=== PATIENT | female | born 1955 | race Caucasian/White ===

== ENCOUNTER 2021-10-26 17:49 | Inpatient (IN) ==
[2021-10-26] MEDS ORDERED: *HR* Etomidate 20 MG/10 ML AMPUL IVP ONE ×2 (18:30→18:42)
[2021-10-26] MEDS ORDERED: Naloxone 0.4 MG/ML INJ IVP PRN (20:00)
[2021-10-26] MEDS ORDERED: Melatonin 3 MG TABLET PO PRN (20:00)
[2021-10-26] MEDS ORDERED: *HR* Heparin 5,000 UNIT/ML VIAL IVP PRN ×2 (20:02)
[2021-10-26] MEDS ORDERED: Perflutren Lipid Microsphere 1.3 ML in 0.9 % Sodium Chloride 8.7 ML IVP PRN (20:04)
[2021-10-26] MEDS ORDERED: *HR* Metoprolol 5 MG/5 ML VIAL IVP PRN (20:05)
[2021-10-26] MEDS: Heparin 25,000UNIT/250ML 1/2NS 25,000 UNIT/250 ML IV.SOLN IVC SCH (20:52)
[2021-10-27 03:13] LABS: Hematocrit 43.1 % (35.3-44.9); Hemoglobin 14.3 g/dL (11.5-15.4); Mean Corpuscular HGB Conc 33.2 g/dL (31.6-35.5); Mean Corpuscular Hemoglobin 30.2 pg (28.0-33.3); Mean Corpuscular Volume 90.9 fL (83.0-100.0); Mean Platelet Volume 9.9 fL (9.4-12.4); Platelet Count 167 K/mcL (140-400); Red Blood Count 4.74 M/mcL (3.82-4.97); Red Cell Distribution Width 13.9 % (11.5-14.5)
[2021-10-27 03:22] LABS: INR 1.2; Prothrombin Time 13.1 Seconds (9.4-12.1)
[2021-10-27 03:27] LABS: Heparin anti-factor XA UFH 1.28 IU/mL (0.30-0.70)
[2021-10-27 03:36] LABS: Alanine Aminotransferase 16 Units/L (7-52); Albumin 3.6 g/dL (3.5-5.7); Albumin/Globulin Ratio 1.5 (1.1-2.2); Alkaline Phosphatase 45 Units/L (34-104); Aspartate Amino Transferase 16 Units/L (13-39); BUN/Creatinine Ratio 18 (6-26); Blood Urea Nitrogen 14 mg/dL (8-23); Calcium 8.4 mg/dL (8.6-10.3); Carbon Dioxide 25 mEq/L (23-29); Chloride 107 mEq/L (98-107); Globulin 2.4 g/dL (2.4-3.5); Glucose 101 mg/dL (70-105); Magnesium 1.8 mg/dL (1.6-2.6); Osmolality,Calculated 287 (280-300); Sodium 138 mEq/L (136-145); eGFR For African Americans > 60 (> 60); eGFR For Non-African Americans > 60 (> 60)
[2021-10-27] MEDS ORDERED: NON-FORMULARY MEDICATION 1 EACH EACH (Omega-3/Dha/Epa/Fish Oil [Fish Oil 1,000 Mg Softgel] PO SCH (09:00)
[2021-10-27] MEDS: Ascorbic Acid 500 MG TABLET PO SCH (09:13)
[2021-10-27] MEDS: Multivit/Ca/Min/Fe/FA 1 TAB TABLET PO SCH (09:13)
[2021-10-27] MEDS: Gabapentin 300 MG CAPSULE PO SCH ×2 (09:13→21:45)
[2021-10-27] MEDS: Loratadine 10 MG TABLET PO SCH (09:13)
[2021-10-27] MEDS: Heparin 25,000UNIT/250ML 1/2NS 25,000 UNIT/250 ML IV.SOLN IVC SCH (11:54)
[2021-10-27] MEDS ORDERED: Nicotine 14 MG PATCH.TD24 TD SCH (12:15)
[2021-10-27 20:11] VITALS: O2SAT 97
[2021-10-28] MEDS ORDERED: Regadenoson 0.4 MG/5 ML SYRINGE IVP ONE (06:22)
[2021-10-28] MEDS: Multivit/Ca/Min/Fe/FA 1 TAB TABLET PO SCH (09:27)
[2021-10-28] MEDS: Ascorbic Acid 500 MG TABLET PO SCH (09:27)
[2021-10-28] MEDS: Gabapentin 300 MG CAPSULE PO SCH (09:27)
[2021-10-28] MEDS: Loratadine 10 MG TABLET PO SCH (09:27)
[2021-10-28] MEDS: Heparin 25,000UNIT/250ML 1/2NS 25,000 UNIT/250 ML IV.SOLN IVC SCH (10:28)
[2021-10-28 11:11] VITALS: BP 159/83; PULSE 78; TEMP 97.7
[2021-10-28] MEDS ORDERED: Apixaban 5 MG TABLET PO SCH (11:45)
== END 2021-10-28 16:20 | disposition home or self-care (01) | DRG 201 ==
LOC: EMEROOARM 17:49 → 2NENU 17:49 → SUATTDRO 20:00 → 2NENU 20:30
PROVIDERS: ADMIT Internal Medicine; ATTEND Pharmacist

== ENCOUNTER 2021-11-25 10:20 | Observation (INO) ==
[2021-11-25] MEDS: *HR* Metoprolol 5 MG/5 ML VIAL IVP PRN ×3 (10:44→11:20)
[2021-11-25 10:49] LABS: Basophils % 0.3 %; Eosinophils # 0.1 K/mcL (0.0-0.6); Hematocrit 48.9 % (35.3-44.9); Hemoglobin 16.9 g/dL (11.5-15.4); Immature Granulocytes % 0.2 % (0-4); Lymphocytes # 1.7 K/mcL (0.6-4.6); Lymphocytes % 28.3 %; Mean Corpuscular HGB Conc 34.6 g/dL (31.6-35.5); Mean Corpuscular Hemoglobin 30.7 pg (28.0-33.3); Mean Corpuscular Volume 88.7 fL (83.0-100.0); Mean Platelet Volume 10.2 fL (9.4-12.4); Monocytes # 0.6 K/mcL (0.0-1.3); Monocytes % 9.1 %; Neutrophils # 3.7 K/mcL (1.6-8.9); Platelet Count 176 K/mcL (140-400); Red Blood Count 5.51 M/mcL (3.82-4.97); Red Cell Distribution Width 13.3 % (11.5-14.5); Segmented Neutrophils % 60.1 %; White Blood Count 6.2 K/mcL (4.3-11.1)
[2021-11-25 10:57] LABS: INR 1.3
[2021-11-25 11:00] LABS: Activated Partial Thrombo Time 37.3 Seconds (26.0-36.0)
[2021-11-25 11:11] LABS: Alanine Aminotransferase 15 Units/L (7-52); Albumin 4.4 g/dL (3.5-5.7); Albumin/Globulin Ratio 1.5 (1.1-2.2); Alkaline Phosphatase 61 Units/L (34-104); Aspartate Amino Transferase 16 Units/L (13-39); BUN/Creatinine Ratio 13 (6-26); Bilirubin,Total 1.6 mg/dL (0.3-1.0); Blood Urea Nitrogen 11 mg/dL (8-23); Calcium 9.5 mg/dL (8.6-10.3); Carbon Dioxide 29 mEq/L (23-29); Chloride 103 mEq/L (98-107); Globulin 2.9 g/dL (2.4-3.5); Glucose 99 mg/dL (70-105); Magnesium 2.1 mg/dL (1.6-2.6); Osmolality,Calculated 285 (280-300); Potassium 4.2 mEq/L (3.5-5.1); Sodium 138 mEq/L (136-145); Total Protein 7.3 g/dL (6.4-8.9); Troponin I < 0.03 ng/mL (< 0.04); eGFR For African Americans > 60 (> 60); eGFR For Non-African Americans > 60 (> 60)
[2021-11-25 11:24] LABS: Thyroid Stimulating Hormone 1.555 mcIU/mL (0.340-5.600)
[2021-11-25] MEDS ORDERED: Isovue-370 500 ML BOTTLE IVP ONE (12:22)
[2021-11-25] MEDS: DilTIAZem 50 MG in 0.9 % Sodium Chloride 40 ML IVC SCH ×2 (12:56→16:27)
[2021-11-25] MEDS ORDERED: Naloxone 0.4 MG/ML INJ IVP PRN ×2 (14:39)
[2021-11-25] MEDS ORDERED: Ondansetron ODT 4 MG TAB.RAPDIS SL PRN (14:39)
[2021-11-25] MEDS ORDERED: *HR* HYDROcodone/Acet 5/325 mg TABLET PO PRN (14:39)
[2021-11-25] MEDS ORDERED: Acetaminophen 325 MG TABLET PO PRN (14:39)
[2021-11-25] MEDS ORDERED: *HR* Digoxin 0.5 MG/2 ML AMPUL IVP ONE (15:46)
[2021-11-25] MEDS: Apixaban 5 MG TABLET PO SCH (20:32)
[2021-11-26 04:59] LABS: Basophils % 0.3 %; Eosinophils # 0.2 K/mcL (0.0-0.6); Eosinophils % 2.5 %; Hematocrit 44.6 % (35.3-44.9); Immature Granulocytes % 0.2 % (0-4); Lymphocytes # 1.7 K/mcL (0.6-4.6); Lymphocytes % 28.3 %; Mean Corpuscular HGB Conc 33.4 g/dL (31.6-35.5); Mean Corpuscular Hemoglobin 30.2 pg (28.0-33.3); Mean Corpuscular Volume 90.5 fL (83.0-100.0); Mean Platelet Volume 10.5 fL (9.4-12.4); Monocytes # 0.5 K/mcL (0.0-1.3); Monocytes % 8.2 %; Neutrophils # 3.7 K/mcL (1.6-8.9); Platelet Count 169 K/mcL (140-400); Red Blood Count 4.93 M/mcL (3.82-4.97); Red Cell Distribution Width 13.6 % (11.5-14.5); Segmented Neutrophils % 60.5 %; White Blood Count 6.1 K/mcL (4.3-11.1)
[2021-11-26 05:09] LABS: Hemoglobin 14.9 g/dL (11.5-15.4)
[2021-11-26 05:17] LABS: Magnesium 2.1 mg/dL (1.6-2.6); Phosphorous 4.3 mg/dL (2.7-4.5)
[2021-11-26 05:18] LABS: Alanine Aminotransferase 12 Units/L (7-52); Albumin 3.8 g/dL (3.5-5.7); Albumin/Globulin Ratio 1.6 (1.1-2.2); Alkaline Phosphatase 47 Units/L (34-104); Aspartate Amino Transferase 13 Units/L (13-39); BUN/Creatinine Ratio 14 (6-26); Blood Urea Nitrogen 12 mg/dL (8-23); Calcium 8.8 mg/dL (8.6-10.3); Carbon Dioxide 33 mEq/L (23-29); Chloride 105 mEq/L (98-107); Globulin 2.4 g/dL (2.4-3.5); Glucose 104 mg/dL (70-105); Osmolality,Calculated 292 (280-300); Potassium 3.8 mEq/L (3.5-5.1); Sodium 141 mEq/L (136-145); Total Protein 6.2 g/dL (6.4-8.9); eGFR For African Americans > 60 (> 60); eGFR For Non-African Americans > 60 (> 60)
[2021-11-26] MEDS: Apixaban 5 MG TABLET PO SCH (08:45)
[2021-11-26] MEDS ORDERED: Loratadine 10 MG TABLET PO SCH (09:00)
[2021-11-26] MEDS ORDERED: Ascorbic Acid 500 MG TABLET PO SCH (09:00)
[2021-11-26] MEDS ORDERED: Nicotine 21 MG PATCH.TD24 TD SCH (09:00)
[2021-11-26] MEDS ORDERED: Multivit/Ca/Min/Fe/FA 1 TAB TABLET PO SCH (09:00)
[2021-11-26] MEDS ORDERED: Gabapentin 300 MG CAPSULE PO SCH (09:00)
[2021-11-26] MEDS ORDERED: Fluticasone Propionate Nasal 50 MCG/SPRAY BOTTLE NS SCH (09:00)
[2021-11-26 10:35] VITALS: BP 127/75; PULSE 74; TEMP 97.5; O2SAT 90
[2021-11-26] MEDS ORDERED: DilTIAZem CD (24hr) 180 MG CAP.ER.24H PO SCH (11:30)
== END 2021-11-26 15:20 | disposition home or self-care (01) ==
LOC: EMEROOARM 10:20 → 3BNU 10:20
PROVIDERS: ADMIT Internal Medicine; ATTEND Internal Medicine

== ENCOUNTER 2022-02-16 16:34 | Observation (INO) ==
[2022-02-16 17:29] LABS: Basophils % 0.2 %; Eosinophils # 0.1 K/mcL (0.0-0.6); Eosinophils % 1.2 %; Hematocrit 45.4 % (35.3-44.9); Hemoglobin 15.2 g/dL (11.5-15.4); Immature Granulocytes % 0.2 % (0-4); Lymphocytes # 2.4 K/mcL (0.6-4.6); Lymphocytes % 27.8 %; Mean Corpuscular HGB Conc 33.5 g/dL (31.6-35.5); Mean Corpuscular Hemoglobin 30.6 pg (28.0-33.3); Mean Corpuscular Volume 91.3 fL (83.0-100.0); Mean Platelet Volume 10.7 fL (9.4-12.4); Monocytes # 0.7 K/mcL (0.0-1.3); Monocytes % 8.4 %; Neutrophils # 5.3 K/mcL (1.6-8.9); Platelet Count 227 K/mcL (140-400); Red Blood Count 4.97 M/mcL (3.82-4.97); Red Cell Distribution Width 14.2 % (11.5-14.5); Segmented Neutrophils % 62.2 %; White Blood Count 8.6 K/mcL (4.3-11.1)
[2022-02-16] MEDS ORDERED: DilTIAZem 50 MG/50 ML IV.SOLN IVC SCH (17:30)
[2022-02-16 17:38] LABS: INR 1.6; Prothrombin Time 18.1 Seconds (9.4-12.1)
[2022-02-16 17:40] LABS: Activated Partial Thrombo Time 37.5 Seconds (26.0-36.0)
[2022-02-16 17:44] LABS: BUN/Creatinine Ratio 17 (6-26); Blood Urea Nitrogen 17 mg/dL (8-23); Calcium 9.1 mg/dL (8.6-10.3); Carbon Dioxide 28 mEq/L (23-29); Chloride 101 mEq/L (98-107); Glucose 92 mg/dL (70-105); Magnesium 1.8 mg/dL (1.6-2.6); Osmolality,Calculated 287 (280-300); Potassium 4.2 mEq/L (3.5-5.1); Sodium 138 mEq/L (136-145); Troponin I < 0.03 ng/mL (< 0.04)
[2022-02-16] MEDS ORDERED: Naloxone 0.4 MG/ML INJ IVP PRN (19:31)
[2022-02-16] MEDS ORDERED: Acetaminophen 325 MG TABLET PO PRN (19:31)
[2022-02-16] MEDS ORDERED: Ondansetron 4 MG/2 ML VIAL IVP PRN (19:31)
[2022-02-16 20:42] LABS: Adenovirus Not Detected (Not Detect); Bordetella Pertussis Not Detected (Not Detect); Chlamydophila pneumoniae Not Detected (Not Detect); Coronavirus 229E Not Detected (Not Detect); Coronavirus HKU1 Not Detected (Not Detect); Coronavirus NL63 Not Detected (Not Detect); Coronavirus OC43 Not Detected (Not Detect); Human Metapneumovirus Not Detected (Not Detect); Human Rhinovirus/Enterovirus Not Detected (Not Detect); Influenza A Subtype 2009 H1 Not Detected (Not Detect); Influenza B Not Detected (Not Detect); Mycoplasma pneumoniae Not Detected (Not Detect); Parainfluenza Virus 1 Not Detected (Not Detect); Parainfluenza Virus 2 Not Detected (Not Detect); Parainfluenza Virus 3 Not Detected (Not Detect); Parainfluenza Virus 4 Not Detected (Not Detect); Respiratory Syncytial Virus Not Detected (Not Detect); SARS-CoV-2 Not Detected (Not Detect)
[2022-02-16] MEDS ORDERED: Benzonatate 100 MG CAPSULE PO PRN (21:25)
[2022-02-16 21:39] VITALS: BP 121/68
[2022-02-16] MEDS: Metoprolol XL (24 HR) Succ 25 MG TAB.ER.24H PO SCH (22:37)
[2022-02-17 03:02] LABS: Basophils % 0.3 %; Eosinophils # 0.1 K/mcL (0.0-0.6); Eosinophils % 1.7 %; Hematocrit 41.5 % (35.3-44.9); Hemoglobin 13.7 g/dL (11.5-15.4); Immature Granulocytes % 0.3 % (0-4); Lymphocytes # 1.8 K/mcL (0.6-4.6); Lymphocytes % 24.8 %; Mean Corpuscular Hemoglobin 30.7 pg (28.0-33.3); Mean Platelet Volume 10.7 fL (9.4-12.4); Monocytes # 0.6 K/mcL (0.0-1.3); Monocytes % 8.4 %; Neutrophils # 4.6 K/mcL (1.6-8.9); Platelet Count 190 K/mcL (140-400); Red Blood Count 4.46 M/mcL (3.82-4.97); Red Cell Distribution Width 14.3 % (11.5-14.5); Segmented Neutrophils % 64.5 %; White Blood Count 7.1 K/mcL (4.3-11.1)
[2022-02-17 03:21] LABS: BUN/Creatinine Ratio 18 (6-26); Blood Urea Nitrogen 17 mg/dL (8-23); Carbon Dioxide 32 mEq/L (23-29); Chloride 102 mEq/L (98-107); Chol/HDL Ratio 4.9 (0-4.9); Cholesterol 152 mg/dL (< 200); Glucose 104 mg/dL (70-105); HDL Cholesterol 31 mg/dL (40-59); LDL Cholesterol,Calculated 88 mg/dL (< 100); Osmolality,Calculated 294 (280-300); Potassium 4.2 mEq/L (3.5-5.1); Sodium 141 mEq/L (136-145); Triglycerides 164 mg/dL (< 150); Troponin I < 0.03 ng/mL (< 0.04)
[2022-02-17 03:27] LABS: INR 1.3; Prothrombin Time 14.1 Seconds (9.4-12.1)
[2022-02-17 03:29] LABS: Thyroid Stimulating Hormone 1.203 mcIU/mL (0.340-5.600)
[2022-02-17] MEDS ORDERED: Magnesium Oxide 400 MG TABLET PO SCH (09:00)
[2022-02-17] MEDS ORDERED: Fluticasone Propionate Nasal 50 MCG/SPRAY BOTTLE NS SCH (09:00)
[2022-02-17] MEDS ORDERED: Zinc Sulfate 220 MG CAPSULE PO SCH (09:00)
[2022-02-17] MEDS ORDERED: Loratadine 10 MG TABLET PO SCH (09:00)
[2022-02-17] MEDS ORDERED: Apixaban 5 MG TABLET PO SCH (09:00)
[2022-02-17] MEDS ORDERED: Gabapentin 300 MG CAPSULE PO SCH (09:00)
[2022-02-17] MEDS ORDERED: Ascorbic Acid 500 MG TABLET PO SCH (09:00)
[2022-02-17] MEDS ORDERED: DilTIAZem CD (24hr) 180 MG CAP.ER.24H PO SCH (09:00)
[2022-02-17] MEDS: Metoprolol XL (24 HR) Succ 25 MG TAB.ER.24H PO SCH (09:44)
[2022-02-17 11:09] VITALS: PULSE 70; TEMP 98.4; O2SAT 96
== END 2022-02-17 14:50 | disposition home or self-care (01) ==
LOC: 3NENU 16:34 → EMEROOARM 16:34 → SUATTDRO 20:19 → 3NENU 21:05
PROVIDERS: ADMIT Internal Medicine; ATTEND Internal Medicine

== ENCOUNTER 2022-04-01 20:44 | Inpatient (IN) ==
[2022-04-01] MEDS ORDERED: DilTIAZem 50 MG/50 ML IV.SOLN IVC SCH (21:15)
[2022-04-01] MEDS ORDERED: *HR* Etomidate 20 MG/10 ML AMPUL IVP ONE (21:15)
[2022-04-01 21:16] LABS: Basophils % 0.2 %; Eosinophils # 0.1 K/mcL (0.0-0.6); Eosinophils % 0.7 %; Hematocrit 43.9 % (35.3-44.9); Hemoglobin 14.9 g/dL (11.5-15.4); Immature Granulocytes % 0.4 % (0-4); Lymphocytes # 1.9 K/mcL (0.6-4.6); Lymphocytes % 23.8 %; Mean Corpuscular HGB Conc 33.9 g/dL (31.6-35.5); Mean Corpuscular Hemoglobin 30.6 pg (28.0-33.3); Mean Corpuscular Volume 90.1 fL (83.0-100.0); Mean Platelet Volume 10.6 fL (9.4-12.4); Monocytes # 0.1 K/mcL (0.0-1.3); Monocytes % 1.3 %; Platelet Count 146 K/mcL (140-400); Red Blood Count 4.87 M/mcL (3.82-4.97); Red Cell Distribution Width 13.6 % (11.5-14.5); Segmented Neutrophils % 73.6 %; White Blood Count 8.2 K/mcL (4.3-11.1)
[2022-04-01 21:23] LABS: INR 1.3
[2022-04-01 21:26] LABS: Activated Partial Thrombo Time 31.1 Seconds (26.0-36.0)
[2022-04-01] MEDS ORDERED: Ondansetron 4 MG/2 ML VIAL IVP STA (21:33)
[2022-04-01 21:38] LABS: Alanine Aminotransferase 45 Units/L (7-52); Albumin 4.2 g/dL (3.5-5.7); Albumin/Globulin Ratio 1.7 (1.1-2.2); Alkaline Phosphatase 56 Units/L (34-104); Aspartate Amino Transferase 20 Units/L (13-39); BUN/Creatinine Ratio 24 (6-26); Bilirubin,Direct 0.1 mg/dL (0.0-0.2); Bilirubin,Total 1.1 mg/dL (0.3-1.0); Blood Urea Nitrogen 29 mg/dL (8-23); Calcium 9.6 mg/dL (8.6-10.3); Carbon Dioxide 27 mEq/L (23-29); Chloride 101 mEq/L (98-107); Globulin 2.5 g/dL (2.4-3.5); Glucose 175 mg/dL (70-105); Magnesium 1.8 mg/dL (1.6-2.6); Osmolality,Calculated 294 (280-300); Potassium 4.2 mEq/L (3.5-5.1); Sodium 137 mEq/L (136-145); Total Protein 6.7 g/dL (6.4-8.9); Troponin I < 0.03 ng/mL (< 0.04)
[2022-04-01 21:52] LABS: Thyroid Stimulating Hormone 3.189 mcIU/mL (0.340-5.600)
[2022-04-01] MEDS ORDERED: 0.9 % Sodium Chloride 1,000 ML IV ONE (22:25)
[2022-04-01] MEDS: DilTIAZem 50 MG/50 ML IV.SOLN IVC SCH (22:32)
[2022-04-01] MEDS ORDERED: 0.9 % Sodium Chloride 1,000 ML ONE (22:33)
[2022-04-02] MEDS ORDERED: Naloxone 0.4 MG/ML INJ IVP PRN (00:31)
[2022-04-02] MEDS ORDERED: *HR* Heparin 5,000 UNIT/ML VIAL IVP PRN ×2 (00:32)
[2022-04-02] MEDS: Heparin 25,000UNIT/250ML 1/2NS 25,000 UNIT/250 ML IV.SOLN IVC SCH (01:12)
[2022-04-02] MEDS: DilTIAZem 50 MG/50 ML IV.SOLN IVC SCH ×3 (02:45→23:05)
[2022-04-02 06:26] LABS: Hemoglobin 13.5 g/dL (11.5-15.4); Mean Corpuscular Hemoglobin 30.3 pg (28.0-33.3)
[2022-04-02 06:28] LABS: Basophils % 0.3 %; Eosinophils # 0.1 K/mcL (0.0-0.6); Eosinophils % 1.2 %; Hematocrit 41.3 % (35.3-44.9); Immature Granulocytes % 0.3 % (0-4); Immature Platelets 4.6 % (1.1-6.1); Lymphocytes % 24.2 %; Mean Corpuscular HGB Conc 32.7 g/dL (31.6-35.5); Mean Corpuscular Volume 92.8 fL (83.0-100.0); Mean Platelet Volume 10.7 fL (9.4-12.4); Monocytes # 0.1 K/mcL (0.0-1.3); Neutrophils # 4.4 K/mcL (1.6-8.9); Platelet Count 110 K/mcL (140-400); Red Blood Count 4.45 M/mcL (3.82-4.97); Red Cell Distribution Width 13.5 % (11.5-14.5)
[2022-04-02 06:29] LABS: Lymphocytes # 1.5 K/mcL (0.6-4.6)
[2022-04-02 06:37] LABS: Albumin 3.6 g/dL (3.5-5.7); Albumin/Globulin Ratio 1.6 (1.1-2.2); Calcium 8.9 mg/dL (8.6-10.3); Globulin 2.3 g/dL (2.4-3.5); Magnesium 1.8 mg/dL (1.6-2.6); Phosphorous 5.4 mg/dL (2.7-4.5); Potassium 4.7 mEq/L (3.5-5.1); Total Protein 5.9 g/dL (6.4-8.9)
[2022-04-02] MEDS ORDERED: Iopamidol - 370 500 ML MLS IVP ONE (07:52)
[2022-04-02] MEDS ORDERED: Amiodarone Premix 150 MG/100 ML BAG IVPB ONE (08:01)
[2022-04-02] MEDS ORDERED: Amiodarone Premix 360 MG/200 ML BAG IVC ONE (08:01)
[2022-04-02] MEDS: *HR* Amiodarone 200 MG TABLET PO SCH ×2 (11:26→20:00)
[2022-04-02] MEDS: Sennosides/Docusate Sodium TABLET PO PRN (11:26)
[2022-04-02] MEDS: Amiodarone Premix 360 MG/200 ML BAG IVC SCH (14:57)
[2022-04-02] MEDS ORDERED: *HR* Metoprolol 5 MG/5 ML VIAL IVP PRN (18:17)
[2022-04-02] MEDS: Gabapentin 300 MG CAPSULE PO SCH (20:00)
[2022-04-02] MEDS: Mometasone Furoate 100 MCG/PUFF Inhaler IH SCH (20:09)
[2022-04-02] MEDS ORDERED: OLANZapine 5 MG TAB.RAPDIS PO SCH (21:00)
[2022-04-03 05:31] LABS: Basophils % 0.4 %
[2022-04-03 05:32] LABS: Eosinophils # 0.1 K/mcL (0.0-0.6); Eosinophils % 2.2 %; Hematocrit 42.4 % (35.3-44.9); Immature Granulocytes % 0.4 % (0-4); Immature Platelets 5.5 % (1.1-6.1); Lymphocytes # 1.1 K/mcL (0.6-4.6); Lymphocytes % 21.7 %; Mean Corpuscular Volume 90.8 fL (83.0-100.0); Mean Platelet Volume 11.1 fL (9.4-12.4); Monocytes % 0.8 %; Neutrophils # 3.7 K/mcL (1.6-8.9); Platelet Count 102 K/mcL (140-400); Red Blood Count 4.67 M/mcL (3.82-4.97); Red Cell Distribution Width 13.5 % (11.5-14.5); Segmented Neutrophils % 74.5 %
[2022-04-03 05:57] LABS: Albumin 3.5 g/dL (3.5-5.7); Albumin/Globulin Ratio 1.5 (1.1-2.2); Bilirubin,Direct 0.1 mg/dL (0.0-0.2); Bilirubin,Indirect 0.8 mg/dL (0.0-1.0); Bilirubin,Total 0.9 mg/dL (0.3-1.0); Calcium 8.6 mg/dL (8.6-10.3); Globulin 2.4 g/dL (2.4-3.5); Magnesium 1.8 mg/dL (1.6-2.6); Phosphorous 4.6 mg/dL (2.7-4.5); Potassium 4.7 mEq/L (3.5-5.1); Total Protein 5.9 g/dL (6.4-8.9)
[2022-04-03] MEDS: DilTIAZem 50 MG/50 ML IV.SOLN IVC SCH (06:08)
[2022-04-03] MEDS: Heparin 25,000UNIT/250ML 1/2NS 25,000 UNIT/250 ML IV.SOLN IVC SCH ×3 (06:08→15:27)
[2022-04-03] MEDS: Amiodarone Premix 360 MG/200 ML BAG IVC SCH (06:08)
[2022-04-03] MEDS: Gabapentin 300 MG CAPSULE PO SCH ×2 (07:26→21:16)
[2022-04-03] MEDS: *HR* Amiodarone 200 MG TABLET PO SCH ×2 (07:26→21:16)
[2022-04-03] MEDS: Mometasone Furoate 100 MCG/PUFF Inhaler IH SCH ×2 (07:30→19:59)
[2022-04-03] MEDS: Sennosides/Docusate Sodium TABLET PO PRN (07:41)
[2022-04-03] MEDS ORDERED: Multivit/Ca/Min/Fe/FA 1 TAB TABLET PO SCH (09:00)
[2022-04-03] MEDS ORDERED: Loratadine 10 MG TABLET PO SCH (09:00)
[2022-04-03] MEDS ORDERED: Fluticasone Propionate Nasal 50 MCG/SPRAY BOTTLE NS SCH (09:00)
[2022-04-03] MEDS ORDERED: Heparin 25,000UNIT/250ML 1/2NS 25,000 UNIT/250 ML IV.SOLN IVC SCH (14:39)
[2022-04-03] MEDS ORDERED: Sennosides/Docusate Sodium TABLET PO PRN (14:39)
[2022-04-03] MEDS ORDERED: *HR* Metoprolol 5 MG/5 ML VIAL IVP PRN (14:39)
[2022-04-03] MEDS ORDERED: *HR* Heparin 5,000 UNIT/ML VIAL IVP PRN ×2 (14:39)
[2022-04-03] MEDS ORDERED: Naloxone 0.4 MG/ML INJ IVP PRN (14:39)
[2022-04-03] MEDS ORDERED: OLANZapine 5 MG TAB.RAPDIS PO SCH (21:00)
[2022-04-04 02:19] LABS: Basophils % 0.4 %; Hemoglobin 12.8 g/dL (11.5-15.4); Mean Corpuscular HGB Conc 32.7 g/dL (31.6-35.5)
[2022-04-04 02:21] LABS: Eosinophils # 0.1 K/mcL (0.0-0.6); Hematocrit 39.1 % (35.3-44.9); Immature Granulocytes % 0.6 % (0-4); Immature Platelets 5.9 % (1.1-6.1); Lymphocytes # 1.4 K/mcL (0.6-4.6); Lymphocytes % 29.4 %; Mean Corpuscular Hemoglobin 29.9 pg (28.0-33.3); Mean Corpuscular Volume 91.4 fL (83.0-100.0); Mean Platelet Volume 11.4 fL (9.4-12.4); Monocytes # 0.1 K/mcL (0.0-1.3); Neutrophils # 3.3 K/mcL (1.6-8.9); Nucleated Red Blood Cells 0.4 /100 WBC (0); Red Blood Count 4.28 M/mcL (3.82-4.97); Red Cell Distribution Width 13.2 % (11.5-14.5); Segmented Neutrophils % 66.6 %; White Blood Count 4.9 K/mcL (4.3-11.1)
[2022-04-04 02:28] LABS: Platelet Count 83 K/mcL (140-400)
[2022-04-04 02:44] LABS: Albumin 3.6 g/dL (3.5-5.7); Albumin/Globulin Ratio 1.5 (1.1-2.2); Bilirubin,Direct 0.2 mg/dL (0.0-0.2); Bilirubin,Total 1.2 mg/dL (0.3-1.0); Calcium 8.9 mg/dL (8.6-10.3); Globulin 2.4 g/dL (2.4-3.5); Magnesium 1.8 mg/dL (1.6-2.6); Phosphorous 4.3 mg/dL (2.7-4.5); Potassium 4.9 mEq/L (3.5-5.1)
[2022-04-04 07:08] VITALS: BP 134/92; PULSE 115
[2022-04-04] MEDS: Mometasone Furoate 100 MCG/PUFF Inhaler IH SCH (07:54)
[2022-04-04] MEDS: *HR* Amiodarone 200 MG TABLET PO SCH (08:40)
[2022-04-04] MEDS: Gabapentin 300 MG CAPSULE PO SCH (08:40)
[2022-04-04] MEDS ORDERED: Multivit/Ca/Min/Fe/FA 1 TAB TABLET PO SCH (09:00)
[2022-04-04] MEDS ORDERED: Loratadine 10 MG TABLET PO SCH (09:00)
[2022-04-04] MEDS ORDERED: Fluticasone Propionate Nasal 50 MCG/SPRAY BOTTLE NS SCH (09:00)
[2022-04-04] MEDS ORDERED: Metoprolol XL (24 HR) Succ 25 MG TAB.ER.24H PO SCH (09:55)
[2022-04-04 10:32] VITALS: TEMP 97.8; O2SAT 92
[2022-04-04] MEDS: Heparin 25,000UNIT/250ML 1/2NS 25,000 UNIT/250 ML IV.SOLN IVC SCH (10:45)
[2022-04-04] MEDS ORDERED: Apixaban 5 MG TABLET PO SCH (12:15)
== END 2022-04-04 14:34 | disposition home or self-care (01) | DRG 201 ==
LOC: EMEROOARM 20:44 → ICNU 20:44 → 2ANU 04-03 15:00
PROVIDERS: ADMIT Internal Medicine; ATTEND Internal Medicine